=== PATIENT | male | born 1995 | race Caucasian/White ===

== ENCOUNTER 2019-06-03 20:49 | Emergency (ER) | payer OTHER ==
--- NOTE | 2019-06-03 21:23 | ED ---
Throat Pain/Nasal Congestion - HPI Summary HPI Summary: Patient complains of spitting out blood 3 hours after brushing his teeth. Denies prior history of same, bleeding disorder, anti-coagulation. Denies known trauma. Denies blood running down the back of his throat, cough, fever, sore throat, CP, SOB, N/V/D, abdominal pain, change in urine, change in BM. Medical history is none. - History of Current Complaint Chief Complaint: EDGeneral Time Seen by Provider: 06/03/19 21:02 Hx Obtained From: Patient Onset/Duration: Sudden Onset, Lasting Hours Associated Signs And Symptoms: Positive: Negative Cough: None - Allergies/Home Medications Allergies/Adverse Reactions: Allergies Allergy/AdvReac Type Severity Reaction Status Date / Time No Known Allergies Allergy Verified 06/03/19 20:54 Home Medications: Home Medications NK [No Home Medications Reported] 06/03/19 [History Confirmed 06/03/19] PMH/Surg Hx/FS Hx/Imm Hx Endocrine/Hematology History: Denies: Hx Anticoagulant Therapy Cardiovascular History: Denies: Hx Pacemaker/ICD History: Denies: Hx Dialysis Sensory History: Denies: Hx Eye Prosthesis Opthamlomology History: Denies: Hx Legally Blind EENT History: Denies: Hx Deafness Neurological History: Denies: Hx Dementia Infectious Disease History: No Infectious Disease History: Denies: Traveled Outside the [place] in Last 30 Days - Family History Known Family History: Positive: Non-Contributory - Social History Alcohol Use: None Hx Substance Use: No Substance Use Type: Reports: None Hx Tobacco Use: No Smoking Status (MU): Never Smoked Tobacco Review of Systems Constitutional: Negative Eyes: Negative ENT: Other Cardiovascular: Negative Respiratory: Negative Gastrointestinal: Negative Genitourinary: Negative Musculoskeletal: Negative Skin: Negative Neurological/Mental Status: Negative Psychological: Normal All Other Systems Reviewed And Are Negative: Yes Physical Exam - Summary Physical Exam Summary: Patient appears to be bleeding from left tonsillar area. Otherwise normal ENT exam. Triage Information Reviewed: Yes Vital Signs On Initial Exam: Initial Vitals Temp Pulse Resp BP Pulse Ox 98.8 F 69 16 144/87 96 06/03/19 20:51 06/03/19 20:51 06/03/19 20:51 06/03/19 20:51 06/03/19 20:51 Vital Signs Reviewed: Yes Appearance: Positive: Well-Appearing Skin: Positive: Warm Head/Face: Positive: Normal Head/Face Inspection Eyes: Positive: Normal ENT: Positive: Other Neck: Positive: Supple Respiratory/Lung Sounds: Positive: Clear to Auscultation Cardiovascular: Positive: Normal Abdomen Description: Positive: Nontender Musculoskeletal: Positive: Normal Neurological: Positive: Normal Psychiatric: Positive: Normal AVPU Assessment: Alert - [place] Coma Scale Best Eye Response: 4 - Spontaneous Best Motor Response: 6 - Obeys Commands Best Verbal Response: 5 - Oriented Coma Scale Total: 15 Procedures - Sedation Patient Received Moderate/Deep Sedation with Procedure: No Diagnostics - Vital Signs Vital Signs Temp Pulse Resp BP Pulse Ox 06/03/19 20:51 98.8 F 69 16 144/87 96 - Laboratory Lab Statement: Any lab studies that have been ordered have been reviewed, and results considered in the medical decision making process. EENT Course/Dx - Course Course Of Treatment: Patient complains of spitting out blood 3 hours after brushing his teeth. Denies prior history of same, bleeding disorder, anti- coagulation. Denies known trauma. Denies blood running down the back of his throat, cough, fever, sore throat, CP, SOB, N/V/D, abdominal pain, change in urine, change in BM. Medical history is none. Vital signs within normal limits. Left tonsillar bleeding on exam. Diminished with cold water being held back of throat. I believe there is a laceration of some sort that is coagulating and then becoming disrupted and then bleeding again. No specific source of bleeding identified for cautery. Patient willing to be discharged home and continue using cold water to help vasoconstriction. - Diagnoses Provider Diagnoses: Hemorrhage of left tonsil Discharge ED - Sign-Out/Discharge Documenting (check all that apply): Patient Departure - Discharge Plan Condition: Stable Disposition: HOME Referrals: No Primary Care Phys,NOPCP [Primary Care Provider] - Additional Instructions: Continue using cold water at the back of throat to help vasoconstrict and support coagulation. Return to the ED for any new or worsening symptoms. - Billing Disposition and Condition Condition: STABLE Disposition: Home
[2019-06-03 22:21] VITALS: BP 144/86
== END 2019-06-03 22:20 | disposition home or self-care (01) ==
LOC: ED 20:49
DX: J35.8 Other chronic diseases of tonsils and adenoids (principal)
CPT/HCPCS: 99282